=== PATIENT | female | born 1955 | race Caucasian/White ===

== ENCOUNTER 2018-09-24 21:08 | Emergency (ER) | payer OTHER ==
[~2018-09-24] VITALS: Ht 167.6 cm; Wt 61.7 kg
[2018-09-24] MEDS ORDERED: LIPITOR20 MG (21:26)
[2018-09-24] MEDS ORDERED: XANAX1 MG (21:26)
[2018-09-24] MEDS ORDERED: NEURONTIN600 MG (21:26)
[2018-09-25] MEDS ORDERED: METOCLOPRAMIDE10 MG PO (00:19)
[2018-09-25] MEDS ORDERED: PEPCID AC20 MG PO (00:19)
== END 2018-09-25 00:29 | disposition home or self-care (01) ==
LOC: ER 21:08
DX: K29.70 Gastritis, unspecified, without bleeding (principal); R11.11 Vomiting without nausea; R07.89 Other chest pain; R42 Dizziness and giddiness

== ENCOUNTER 2022-11-25 10:20 | Emergency (ER) | payer OTHER ==
[~2022-11-25] VITALS: Ht 167.6 cm; Wt 60.3 kg
[~2022-11-25 10:20] MED LIST: LIPITOR20 MG; METOCLOPRAMIDE10 MG PO; NEURONTIN600 MG; PEPCID AC20 MG PO; XANAX1 MG
== END 2022-11-25 17:19 | disposition home or self-care (01) ==
LOC: ER 10:20
DX: R42 Dizziness and giddiness (principal); R11.0 Nausea; Z88.8 Allergy status to other drugs, medicaments and biological substances